=== PATIENT | male | born 2005 | race Two or more races ===

== ENCOUNTER 2023-03-03 09:51 | Emergency (ER) | payer OTHER ==
[~2023-03-03] VITALS: Ht 170.2 cm; Wt 62.7 kg
[2023-03-03 13:48] LABS: BASO % 0.4 % (0.0-1.0); EOS # 0.2 10^3/uL (0.0-0.5); EOS % 2.7 % (0.0-3.0); HEMATOCRIT 48.5 % (42.0-52.0); HEMOGLOBIN 16.1 g/dl (13.5-17.5); LYMPH # 2.1 10^3/uL (1.5-5.0); LYMPH % 26.9 % (24.0-44.0); MEAN CORPUSCULAR HEMOGLOBIN 26.3 pg (27.0-33.0); MEAN CORPUSCULAR HGB CONC 33.2 g/dl (32.0-36.5); MEAN CORPUSCULAR VOLUME 79.1 fl (80.0-96.0); MONO # 0.6 10^3/uL (0.0-0.8); MONO % 7.9 % (2.0-8.0); NEUTROPHILS # 4.8 10^3/uL (1.5-8.5); NEUTROPHILS % 61.8 % (36.0-66.0); PLATELET COUNT, AUTOMATED 211 10^3/uL (150-450); RED BLOOD COUNT 6.13 10^6/uL (4.30-6.10); WHITE BLOOD COUNT 7.7 10^3/uL (4.0-10.0)
[2023-03-03 14:11] LABS: ERYTHROCYTE SEDIMENTATION RATE 61 mm/hr (0-15)
[2023-03-03 16:32] VITALS: BP 141/68; TEMP 97.2; O2SAT 99
[2023-03-05] MEDS ORDERED: CEPH500C PO (01:23)
== END 2023-03-03 16:43 | disposition home or self-care (01) ==
LOC: M ED 09:51
DX: S80.12XA Contusion of left lower leg, initial encounter (principal); W22.8XXA Striking against or struck by other objects, initial encounter; Y92.009 Unspecified place in unspecified non-institutional (private) residence as the place of occurrence of the external cause; Y93.89 Activity, other specified; Y99.8 Other external cause status